=== PATIENT | female | born 1950 | race Caucasian/White ===

== ENCOUNTER 2023-02-13 21:56 | Emergency (ER) | payer MEDICARE ==
[~2023-02-13] VITALS: Ht 152.4 cm; Wt 45.3 kg
[2023-02-13 22:09] VITALS: BP 176/76
== END 2023-02-13 23:25 | disposition left against medical advice (07) ==
LOC: ER 21:56
DX: Z53.21 Procedure and treatment not carried out due to patient leaving prior to being seen by health care provider (principal)
CPT/HCPCS: 99281